=== PATIENT | male | born 1965 | race Hispanic/Latino ===

== ENCOUNTER 2017-05-28 09:15 | Emergency (ER) | payer MEDICAID, OTHER ==
[2017-05-28] MEDS ORDERED: Metoprolol Succinate 50 mg XL Tab PO STA (09:30)
[2017-05-28] MEDS ORDERED: Lidocaine 5% Patch TD STA (09:30)
[2017-05-28 09:31] VITALS: TEMP 97.8
[2017-05-28] MEDS ORDERED: Lidocaine 5% Patch TD ONE (09:42)
--- NOTE | 2017-05-28 09:45 | C.PDOC ---
History Of Present Illness Pt is a pleasant 51 year old male who states that on afternoon he was flipping over his mattress and while doing this heavy lifting, he hurt his left lower back. The pain did not start immediately--started to come on a few hours later. The pain is in the left lower back and radiates down the left leg (to the knee). The pain is worse if he bends at the lower back. Pt has a history of back pain in the past (told he has herniated disc). I did query the prescription monitoring program and no opioid use revealed. Pt describes the pain as sharp and is an 8 on a 1-10 scale. Pt also w/ hx of HTN but has not taken his BP meds for a few days--is going to see his PMD on Tuesday to get refill of his prescriptions. (Will give dose of his routine BP meds now in ED.) PMD: Dr. Ng . Time Seen by Provider: 05/28/17 09:26 Chief Complaint (Nursing): Back Pain History Per: Patient Onset/Duration Of Symptoms: Days Current Symptoms Are (Timing): Still Present Pain Scale Rating Of: 8 Past Medical History Reviewed: Historical Data, Nursing Documentation, Vital Signs Vital Signs: Last Vital Signs Temp 97.8 F 05/28/17 09:20 Pulse 69 05/28/17 10:19 Resp 16 05/28/17 10:19 BP 142/95 H 05/28/17 10:19 Pulse Ox 97 05/28/17 10:21 - Medical History PMH: CAD, Diabetes, HTN Other Surgeries: cardiac stents Family History: States: Diabetes - Social History Hx Tobacco Use: Yes Hx Alcohol Use: No Hx Substance Use: No - Immunization History Hx Tetanus Toxoid Vaccination: No Hx Influenza Vaccination: Yes Hx Pneumococcal Vaccination: No Review Of Systems Except As Marked, All Systems Reviewed And Found Negative. Cardiovascular: Negative for: Chest Pain Respiratory: Negative for: Shortness of Breath Musculoskeletal: Positive for: Back Pain Skin: Negative for: Rash Neurological: Negative for: Weakness Physical Exam - Physical Exam Appears: Well, Non-toxic, Other (appears to be in mild pain) Skin: Normal Color Head: Atraumatic Eye(s): bilateral: Normal Inspection, EOMI Ear(s): Bilateral: Normal Nose: Normal Tongue: Normal Appearing Lips: Normal Appearing Throat: Normal Chest: Symmetrical Cardiovascular: Rhythm Regular Respiratory: Normal Breath Sounds, No Rales, No Rhonchi, No Wheezing Rectal: Deferred Back: Straight Leg Raising (left side pain with leg raising), Other (left paralumbar back tenderness) Extremity: Normal ROM ED Course And Treatment O2 Sat by Pulse Oximetry: 97 Medical Decision Making Medical Decision Making: Initial Impression: Low back pain -- possible lumbar radiculopathy Initial Plan: Pain medication (will also give his BP medication) Progress note(s): 10:20 AM-- Pain scale is a 5. BP better. Will d/c home. Disposition Counseled Patient/Family Regarding: Need For Followup, Rx Given, Smoking Cessation - Disposition Referrals: Alissa Arce MD [Staff Provider] - Barney Hudson MD [Staff Provider] - Disposition: HOME/ ROUTINE Disposition Time: 09:45 Condition: IMPROVED Additional Instructions: Mr. Rodriguez, thank you for letting us take care of you today. Return to the ER if your symptoms worsen, or if any problems. Take the medication listed below as prescribed. Please follow up with Dr. Ng this Tuesday as previously scheduled. Also follow up with a pain management doctor (Dr. Alissa Arce or Dr. Barney Hudson) next week also. The phone numbers to make an appointment with one of them is listed below. Prescriptions: Acetaminophen with Codeine [Tylenol with Codeine #3 Tablet] 2 tab PO Q6 PRN #16 tablet PRN Reason: Pain, Severe (8-10) Ibuprofen [Motrin Tab] 1 tab PO TID PRN #30 tab PRN Reason: Pain, Moderate (4-7) Lidocaine 5% [Lidoderm] 1 ea TD BID PRN #30 patch PRN Reason: Pain, Moderate (4-7) Losartan/Hydrochlorothiazide [Losartan-Hctz 100-25 mg Tab] 1 tab PO DAILY #30 tablet Metoprolol Succinate 1 tab PO DAILY #30 tab.er.24h Instructions: How to Stop Smoking (ED), Acute Low Back Pain (ED), Lumbar Radiculopathy (ED), Hypertension (ED) Forms: [facility] ([place]), General Discharge Instructions Print Language: YAKUT - POA Present On Arrival: None - Clinical Impression Clinical Impression: Low back pain, Hypertension
[2017-05-28 10:19] VITALS: BP 142/95; PULSE 69; RESP 16
[2017-05-28 10:22] VITALS: O2SAT 97
== END 2017-05-28 10:25 | disposition home or self-care (01) ==
LOC: C.ER 09:15
DX: M54.5 Low back pain (principal); I10 Essential (primary) hypertension; F17.210 Nicotine dependence, cigarettes, uncomplicated
CPT/HCPCS: 96372; 99284; J1885

== ENCOUNTER 2018-08-09 08:14 | Outpatient (CLI) | payer OTHER | END 2018-08-09 08:15 | disposition home or self-care (01) | LOC: C.LAB 08:14 | DX: E11.9 Type 2 diabetes mellitus without complications (principal); E78.00 Pure hypercholesterolemia, unspecified; I10 Essential (primary) hypertension; N42.9 Disorder of prostate, unspecified ==